=== PATIENT | female | born 1970 | race Two or more races ===

== ENCOUNTER 2016-07-01 18:43 | Emergency (ER) | payer SELFPAY ==
[~2016-07-01] VITALS: Ht 165.1 cm; Wt 68.0 kg
--- NOTE | 2016-07-01 19:00 | NUR ---
PT BIB [facility] C/O CAMPO X TODAY. NO STROKE SX NOTED HOWEVER PT REPORTS THAT SHE HAD A CVA ON 06/20/16. RESP EVEN UNLABORED. +NAUSEA, -VOMITING. SKIN WARM NONDIAPHORETIC. PT HOLDING BACK OF HEAD. DENIES HEAD TRAUMA. IN ER BED 12.
[2016-07-01] MEDS ORDERED: HYDROMORPHONE INJ 2 MG/ML DISP.SYRIN IV ONE (19:30)
[2016-07-01] MEDS ORDERED: ONDANSETRON HCL/PF - ER 4 MG/2 ML VIAL IV ONE (19:30)
[2016-07-01] MEDS ORDERED: IV NS 0.9% 500 ML BAG IV ONE (19:30)
[2016-07-01 19:35] LABS: BASOPHILS % (AUTO) 0.4 % (0.0-2.0); EOSINOPHILS # (AUTO) 0.3 /CMM (0.0-0.7); EOSINOPHILS % (AUTO) 2.8 % (0.0-6.0); HEMATOCRIT 39 % (33-45); LYMPHOCYTES # (AUTO) 3.2 /CMM (0.8-4.8); LYMPHOCYTES % (AUTO) 28.5 % (20.0-44.0); MEAN CORPUSCULAR HEMOGLOBIN 28 PG (26.0-33.0); MEAN CORPUSCULAR HGB CONC 33 g/dl (31.0-36.0); MEAN CORPUSCULAR VOLUME 84 fL (82-100); MONOCYTES # (AUTO) 0.8 /CMM (0.1-1.30); MONOCYTES % (AUTO) 6.9 % (2.0-12.0); NEUTROPHILS # (AUTO) 6.8 /CMM (1.8-8.9); NEUTROPHILS % (AUTO) 61.4 % (43.0-81.0); PLATELET COUNT (AUTO) 283 /CMM (150-450); RDW COEFFICIENT OF VARIATION 20.8 (11.5-15.0); RED BLOOD CELL COUNT(AUTO) 4.68 MIL/uL (4.0-5.2); WHITE BLOOD COUNT (AUTO) 11.1 K/uL (4.3-11.0)
[2016-07-01] MEDS ORDERED: HYDROMORPHONE 1 MG/1 ML DISP.SYRIN ONE (19:35)
[2016-07-01] MEDS ORDERED: ONDANSETRON HCL/PF 4 MG/2 ML VIAL ONE (19:36)
[2016-07-01] MEDS ORDERED: IV SET PRIMARY 1 EA INFUS.SET MC ONE (19:36)
[2016-07-01] MEDS ORDERED: IV NS 0.9% 500 ML IV ONE (19:36)
[2016-07-01 19:41] LABS: CALCIUM, SERUM 8.7 mg/dL (8.5-10.1); CARBON DIOXIDE 28 mmol/L (21-32); CHLORIDE 105 mmol/L (98-107); CREATININE 0.8 mg/dL (0.6-1.3); GFR 77 mL/min (>60); GLUCOSE 140 mg/dL (74-106); POTASSIUM 3.5 mmol/L (3.5-5.1); SODIUM SERUM 139 mmol/L (136-145); UREA NITROGEN, BLOOD 12 mg/dL (7-18)
[2016-07-01 19:46] LABS: ALANINE AMINOTRANSFERASE 26 U/L (12-78); ALBUMIN 3.5 g/dL (3.4-5.0); ALKALINE PHOSPHATASE 100 U/L (46-116); ASPARTATE AMINOTRANSFERASE 17 U/L (15-37); BILIRUBIN,DIRECT 0.1 mg/dL (0.0-0.2); BILIRUBIN,TOTAL 0.3 mg/dL (0.2-1.0); TOTAL PROTEIN, SERUM 7.4 g/dL (6.4-8.2)
[2016-07-01 19:48] LABS: TROPONIN I < 0.017 ng/mL (0.00-0.056)
[2016-07-01 19:50] LABS: INR 1.12 (0.87-1.13); PROTHROMBIN TIME 11.8 SECS (9.5-12.7)
--- NOTE | 2016-07-01 20:08 | NUR ---
PT TRANSPORTED TO [facility]IA [facility] IN STABLE CONDITION
[2016-07-01] MEDS ORDERED: HYDROCODONE/APAP 5/325MG 1 EACH TABLET ONE (21:26)
[2016-07-01] MEDS ORDERED: HYDROCODONE/APAP 5/325MG 1 EACH TABLET PO ONE (21:30)
--- NOTE | 2016-07-01 21:34 | NUR ---
NAD NOTED. C/O HEADACHE. MEDICATED PER MD ORDER
[2016-07-01 22:02] VITALS: BP 131/76
--- NOTE | 2016-07-01 22:02 | NUR ---
Patient discharged to home in stable condition. Written and verbal after care instructions given. Patient verbalizes understanding of instruction. IV removed. Catheter intact and site benign. Pressure and 4x4 applied to site. No bleeding noted. AMBUALTORY WITH STEADY GAIT.
== END 2016-07-01 22:06 | disposition home or self-care (01) ==
LOC: ER 18:52
DX: R51 Headache (principal); I10 Essential (primary) hypertension; E78.00 Pure hypercholesterolemia, unspecified
CPT/HCPCS: 36415; 70450; 80048; 80076; 84484; 85025; 85730; 93005; 96374; 96375; 99285; A4606; J1170; J2405; J7040; Z7610

== ENCOUNTER 2016-07-21 21:52 | Emergency (ER) | payer OTHER ==
[~2016-07-21] VITALS: Ht 172.7 cm; Wt 79.4 kg
--- NOTE | 2016-07-21 23:30 | NUR ---
BIB SELF AMBULATORY TO ER BED 2 CC: HEADACHE SINCE 1800, HX OF MIGRAINES. PT AOX4 RR EVEN AND UNLABORED. PT AOX4 RR EVEN AND UNLABORED. NO SOB NOTED. NAD NOTED. NO NVD AT THIS TIME. PT GOWNED AND PLACED ON MONITOR WAITING FOR MD YANG.
--- NOTE | 2016-07-21 23:34 | NUR ---
IV STARTED ON RIGHT AC 18, LABS DRAWN.
--- NOTE | 2016-07-21 23:43 | NUR ---
DR GLASS AT BEDSIDE FOR EVAL.
[2016-07-21] MEDS ORDERED: IV SET PRIMARY PUMP SET 1 EA INFUS.SET MC ONE (23:52)
[2016-07-21] MEDS ORDERED: IV NS 0.9% 1,000 ML ONE (23:52)
[2016-07-21] MEDS ORDERED: diphenhydrAMINE HCL 50 MG/ML VIAL ONE (23:52)
[2016-07-21] MEDS ORDERED: METOCLOPRAMIDE HCL 10 MG/2 ML VIAL ONE (23:52)
[2016-07-22] MEDS ORDERED: diphenhydrAMINE HCL 50 MG/ML VIAL IV ONE
[2016-07-22] MEDS ORDERED: METOCLOPRAMIDE HCL 10 MG/2 ML VIAL IV ONE
[2016-07-22] MEDS ORDERED: IV NS 0.9% 1,000 ML BAG IV ONE
[2016-07-22 00:13] LABS: CALCIUM, SERUM 8.5 mg/dL (8.5-10.1); CARBON DIOXIDE 27 mmol/L (21-32); CHLORIDE 102 mmol/L (98-107); CREATININE 0.8 mg/dL (0.6-1.3); GLUCOSE 90 mg/dL (74-106); INR 1.03 (0.87-1.13); POTASSIUM 3.8 mmol/L (3.5-5.1); SODIUM SERUM 139 mmol/L (136-145); UREA NITROGEN, BLOOD 13 mg/dL (7-18)
[2016-07-22 00:15] LABS: BASOPHILS # (AUTO) 0.1 /CMM (0.0-0.2); BASOPHILS % (AUTO) 0.9 % (0.0-2.0); EOSINOPHILS # (AUTO) 0.5 /CMM (0.0-0.7); EOSINOPHILS % (AUTO) 3.7 % (0.0-6.0); HEMATOCRIT 38 % (33-45); HEMOGLOBIN 12.8 g/dL (11.5-14.8); LYMPHOCYTES # (AUTO) 3.8 /CMM (0.8-4.8); MEAN CORPUSCULAR HEMOGLOBIN 29 PG (26.0-33.0); MEAN CORPUSCULAR HGB CONC 34 g/dl (31.0-36.0); MEAN CORPUSCULAR VOLUME 87 fL (82-100); MONOCYTES # (AUTO) 0.6 /CMM (0.1-1.30); MONOCYTES % (AUTO) 5.3 % (2.0-12.0); NEUTROPHILS # (AUTO) 7.2 /CMM (1.8-8.9); NEUTROPHILS % (AUTO) 59.1 % (43.0-81.0); PLATELET COUNT (AUTO) 223 /CMM (150-450); RDW COEFFICIENT OF VARIATION 16.3 (11.5-15.0); RED BLOOD CELL COUNT(AUTO) 4.36 MIL/uL (4.0-5.2); WHITE BLOOD COUNT (AUTO) 12.2 K/uL (4.3-11.0)
--- NOTE | 2016-07-22 00:15 | NUR ---
URINE COLLECTED. CALLED LAB FOR CONSTRUCTION SCHEDULER. PT TO CT VIA WC
[2016-07-22 00:23] LABS: TROPONIN I < 0.017 ng/mL (0.00-0.056)
[2016-07-22] MEDS ORDERED: ACETAMINOPHEN ES 500 MG TABLET ONE (01:48)
--- NOTE | 2016-07-22 01:50 | NUR ---
DR. GLASS AT BEDSIDE SPEAKING TO PT REGARDING RESULTS.
--- NOTE | 2016-07-22 01:53 | NUR ---
VERBAL ORDERS PER DR. GLASS TO GIVE PT TYLENOL 1GM PO ONE TIME NOW. PT MEDICATED.
[2016-07-22] MEDS ORDERED: ACETAMINOPHEN 325 MG TABLET PO ONE (02:00)
[2016-07-22 04:07] VITALS: BP 102/70
--- NOTE | 2016-07-22 04:08 | NUR ---
Patient discharged to home in stable condition. Written and verbal after care instructions given. Patient verbalizes understanding of instruction.IV removed. Catheter intact and site benign. Pressure and 4x4 applied to site. No bleeding noted.
[2016-07-22 05:43] LABS: APPEARANCE,URINE SL CLOUDY (CLEAR); BILIRUBIN,URINE NEGATIVE (NEGATIVE); BLOOD, URINE 2+ Ery/uL (NEGATIVE); COLOR,URINE YELLOW (YELLOW); KETONES,URINE NEGATIVE (NEGATIVE); LEUKOCYTE ESTERASE ,URINE NEGATIVE (NEGATIVE); NITRITE, URINE NEGATIVE (NEGATIVE); PROTEIN,URINE NEGATIVE (NEGATIVE); UGLUCOSE NEGATIVE (NEGATIVE); UROBILINOGEN,URINE 0.2 EU/dL (0.2)
[2016-07-22 05:51] LABS: BACTERIA,URINE None seen /HPF (None Seen); SQUAMOUS EPITHELIAL CELL,UR Moderate /HPF (None Seen); WBC,URINE 0-2 /HPF (0-3)
== END 2016-07-22 04:08 | disposition home or self-care (01) ==
LOC: ER 21:54
DX: R51 Headache (principal); E78.00 Pure hypercholesterolemia, unspecified; G89.4 Chronic pain syndrome; I10 Essential (primary) hypertension; R79.1 Abnormal coagulation profile; Z86.73 Personal history of transient ischemic attack (TIA), and cerebral infarction without residual deficits
CPT/HCPCS: 36415; 70450; 80048; 81001; 84484; 85025; 85730; 96361; 96374; 96375; 99285; A4606; J1200; J2765; J7030; Z7610; 81000-TC